=== PATIENT | male | born 1980 | race Caucasian/White ===

== ENCOUNTER 2022-07-10 10:20 | Emergency (ER) | payer OTHER ==
[2022-07-10] MEDS ORDERED: Ketorolac 30 MG/ML SDV IM ONE (10:47)
[2022-07-10] MEDS ORDERED: oxyCODONE 5 MG Tab PO ONE (11:18)
== END 2022-07-10 11:35 | disposition home or self-care (01) ==
LOC: JP.ED 10:20
DX: S92.035A Nondisplaced avulsion fracture of tuberosity of left calcaneus, initial encounter for closed fracture (principal); F17.210 Nicotine dependence, cigarettes, uncomplicated; Z86.16 Personal history of COVID-19; W11.XXXA Fall on and from ladder, initial encounter
CPT/HCPCS: 73610; 96372; 99283; A9270; J1885

== ENCOUNTER 2022-12-17 07:09 | Day surgery (SDC) | payer OTHER ==
[~2022-12-17 07:09] MED LIST: Bupivacaine 0.5% 50 ML MDV ONE
[2022-12-17] MEDS ORDERED: Nozin Nasal Sanitizer NASBOTH ONE (07:30)
[2022-12-17] MEDS ORDERED: Nozin Nasal Sanitizer NASBOTH SCH (07:30)
[2022-12-17 07:33] LABS: HEMATOCRIT 42.3 % (38.4-49.7); HEMOGLOBIN 14.4 g/dL (12.9-16.9); MEAN CORPUSCULAR HEMOGLOBIN 30.3 pg (31.6-35.5); MEAN CORPUSCULAR VOLUME 89.1 fL (81.4-99.0); RED BLOOD CELL COUNT 4.75 M/uL (4.14-5.76); WHITE BLOOD CELL COUNT,WBC 9.5 K/uL (3.2-11.0)
[2022-12-17 07:54] LABS: A/G RATIO 1.1 (1.2-2.2); ALANINE AMINOTRANSFERASE,ALT 21 U/L (12-78); ALBUMIN 3.5 g/dL (3.4-5.0); ALKALINE PHOSPHATASE 60 U/L (46-116); ANION GAP 7.7 mmol/L (5.0-14.0); ASPARTATE AMNIOTRANSFERASE,AST 14 U/L (15-37); BILIRUBIN TOTAL 0.2 mg/dL (0.2-1.0); BLOOD UREA NITROGEN,BUN 16 mg/dL (7-18); CALCIUM 8.9 mg/dL (8.5-10.1); CARBON DIOXIDE,CO2 26 mmol/L (21-32); CHLORIDE,CL 106 mmol/L (100-108); CREATININE 0.8 mg/dL (0.8-1.3); ESTIMATED GFR 113 mL/min (>60); GLUCOSE RANDOM 97 mg/dL (74-106); POTASSIUM,K 3.9 mmol/L (3.6-5.2); PROTEIN TOTAL,TP 6.8 g/dL (6.4-8.2); SODIUM,NA 140 mmol/L (140-148)
[2022-12-17] MEDS ORDERED: Lactated Ringers 1,000 ML IV SCH (08:30)
[2022-12-17] MEDS ORDERED: ceFAZolin 2 GM in Premix Bag 1 BAG IV ONE (09:00)
[2022-12-17] MEDS ORDERED: fentaNYL 250 MCG/5 ML SDV ONE ×3 (10:15→12:19)
[2022-12-17] MEDS ORDERED: Ondansetron 4 MG/2 ML SDV ONE (10:16)
[2022-12-17] MEDS ORDERED: Rocuronium 50 MG/5 ML Vial ONE ×2 (10:16→11:22)
[2022-12-17] MEDS ORDERED: Neostigmine Methylsulfate 1 MG/ML 5 ML Syringe ONE (10:16)
[2022-12-17] MEDS ORDERED: Dexamethasone 4 MG/ML SDV ONE (10:16)
[2022-12-17] MEDS ORDERED: Glycopyrrolate 0.2 MG/ML 5 ML MDV ONE (10:16)
[2022-12-17] MEDS ORDERED: Propofol 200 MG/20 ML SDV ONE (10:16)
[2022-12-17] MEDS ORDERED: Labetalol 20 MG/4 ML Syringe ONE (12:00)
[2022-12-17] MEDS ORDERED: Lactated Ringers 1,000 ML ONE (12:02)
[2022-12-17] MEDS ORDERED: oxyCODONE 5 MG Tab PO PRN (13:14)
[2022-12-17] MEDS ORDERED: ceFAZolin 2 GM in Sodium Chloride 0.9% 100 ML IV SCH (13:15)
[2022-12-17] MEDS ORDERED: Docusate Sodium 100 MG Cap PO PRN (13:15)
[2022-12-17] MEDS ORDERED: Ondansetron 4 MG/2 ML SDV IVPUSH PRN (13:15)
[2022-12-17] MEDS ORDERED: Non-Formulary Medication 1 Each (Albuterol/Ipratropium [Combivent Respimat] 4 GM Inhaler) INH PRN (13:20)
[2022-12-17] MEDS ORDERED: Morphine 2 MG/ML SYRINGE IVPUSH ONE (13:26)
[2022-12-17] MEDS: Morphine 2 MG/ML SYRINGE IVPUSH PRN ×3 (14:16→18:52)
[2022-12-17] MEDS: Sodium Chloride 0.9% 1,000 ML IV SCH ×2 (14:23→23:04)
[2022-12-17] MEDS: oxyCODONE 5 MG Tab PO PRN ×2 (14:54→20:56)
[2022-12-17] MEDS: Ketorolac 30 MG/ML SDV IVPUSH PRN (14:56)
[2022-12-17] MEDS: Acetaminophen 325 MG Tab PO SCH ×2 (16:45→21:01)
[2022-12-17] MEDS: ceFAZolin 2 GM in Premix Bag 1 BAG IV SCH ×2 (16:46→17:36)
[2022-12-17] MEDS ORDERED: Albuterol/Ipratropium 3.0-0.5 MG/3 ML Neb Soln INH PRN (17:30)
[2022-12-17] MEDS ORDERED: Calcium Carbonate 500 MG Tab.Chew PO PRN (20:12)
[2022-12-17] MEDS: Morphine 4 MG/ML Syringe IVPUSH PRN (20:57)
[2022-12-17] MEDS: Nozin Nasal Sanitizer NASBOTH SCH (20:58)
[2022-12-17] MEDS: Aspirin 325 MG Tab.EC PO SCH (20:59)
[2022-12-18] MEDS: Morphine 4 MG/ML Syringe IVPUSH PRN ×3 (00:13→07:10)
[2022-12-18] MEDS: ceFAZolin 2 GM in Premix Bag 1 BAG IV SCH ×2 (03:02→09:04)
[2022-12-18] MEDS: Acetaminophen 325 MG Tab PO SCH ×2 (03:04→09:05)
[2022-12-18] MEDS: oxyCODONE 5 MG Tab PO PRN ×2 (03:04→09:25)
[2022-12-18] MEDS ORDERED: Albuterol 6.7 GM Inhaler INH SCH (07:00)
[2022-12-18] MEDS ORDERED: Nicotine 14 MG/24 Hr Patch TRDERM SCH (09:00)
[2022-12-18] MEDS ORDERED: Non-Formulary Medication 1 Each (Albuterol Sulfate [Albuterol Sulfate Hfa] 8.5 GM Hfa.Aer. INH SCH (09:00)
[2022-12-18] MEDS: Ketorolac 30 MG/ML SDV IVPUSH PRN (09:03)
[2022-12-18] MEDS: Aspirin 325 MG Tab.EC PO SCH (09:04)
[2022-12-18] MEDS: Nozin Nasal Sanitizer NASBOTH SCH (09:04)
== END 2022-12-18 11:06 | disposition home or self-care (01) ==
LOC: JP.SDS 07:09 → JP.MS 13:15 → JP.SDS 12-18 11:06
PROVIDERS: ATTEND Specialist
DX: S83.282A Other tear of lateral meniscus, current injury, left knee, initial encounter (principal); S83.512A Sprain of anterior cruciate ligament of left knee, initial encounter; M23.52 Chronic instability of knee, left knee; F41.9 Anxiety disorder, unspecified; J45.909 Unspecified asthma, uncomplicated; Z88.8 Allergy status to other drugs, medicaments and biological substances; F17.200 Nicotine dependence, unspecified, uncomplicated
CPT/HCPCS: 29881; 29888; 36415; 73560; 80053; 85027; 97161; A9270; C1713; C1762; C1776; J0690; J1100; J1885; J2270; J2405; J2704; J2710; J3010; J3360; J3490; J7030; J7120

== ENCOUNTER 2023-06-01 19:21 | Emergency (ER) | payer OTHER ==
[2023-06-01] MEDS ORDERED: Albuterol/Ipratropium 3.0-0.5 MG/3 ML Neb Soln NEB ONE (20:01)
[2023-06-01 20:56] LABS: CORONAVIRUS COVID-19 NAA NEGATIVE (NEGATIVE); INFLUENZA A NAA NEGATIVE (NEGATIVE); INFLUENZA B NAA NEGATIVE (NEGATIVE); RESPIRATORY SYNCYTIAL VIR NAA NEGATIVE (NEGATIVE)
[2023-06-01] MEDS ORDERED: predniSONE 20 MG Tab PO STA (21:09)
[2023-06-01] MEDS ORDERED: traMADol 50 MG Tab PO STA (21:21)
== END 2023-06-01 21:46 | disposition home or self-care (01) ==
LOC: JP.ED 19:21
DX: J45.901 Unspecified asthma with (acute) exacerbation (principal); Z20.822 Contact with and (suspected) exposure to COVID-19; Z86.16 Personal history of COVID-19; Z79.899 Other long term (current) drug therapy; Z91.048 Other nonmedicinal substance allergy status; Z88.8 Allergy status to other drugs, medicaments and biological substances
CPT/HCPCS: 0241U; 71046; 94640; 99285; A9270; 99284; J7620

== ENCOUNTER 2023-12-30 10:34 | Day surgery (SDC) | payer MEDICAID, OTHER ==
[2023-12-30] MEDS: Lactated Ringers 1,000 ML IV SCH (11:12)
[2023-12-30 11:15] LABS: HEMATOCRIT 41.7 % (38.4-49.7); HEMOGLOBIN 14.8 g/dL (12.9-16.9); MEAN CORPUSCULAR HEMOGLOBIN 31.5 pg (31.6-35.5); MEAN CORPUSCULAR HGB CONC 35.5 g/dL (31.6-35.5); MEAN CORPUSCULAR VOLUME 88.7 fL (81.4-99.0); RED BLOOD CELL COUNT 4.7 M/uL (4.14-5.76); WHITE BLOOD CELL COUNT,WBC 7.2 K/uL (3.2-11.0)
[2023-12-30] MEDS: Nozin Nasal Sanitizer NASBOTH ONE (11:28)
[2023-12-30 11:30] LABS: ANION GAP 11.2 mmol/L (5.0-14.0); CALCIUM 8.7 mg/dL (8.5-10.1); EST CRCL DRUG DOSING (CG) 77.05 mL/min; POTASSIUM,K 3.8 mmol/L (3.6-5.2)
[2023-12-30] MEDS: fentaNYL 50 MCG/ML SDV IVPUSH ONE (14:22)
[2023-12-30] MEDS ORDERED: fentaNYL 250 MCG/5 ML SDV ONE ×2 (14:53→17:19)
[2023-12-30] MEDS ORDERED: Rocuronium 50 MG/5 ML Vial ONE (14:54)
[2023-12-30] MEDS ORDERED: Neostigmine Methylsulfate 10 MG/10 ML MDV ONE (14:54)
[2023-12-30] MEDS ORDERED: Dexamethasone 4 MG/ML SDV ONE (14:54)
[2023-12-30] MEDS ORDERED: Glycopyrrolate 0.2 MG/ML 5 ML MDV ONE (14:54)
[2023-12-30] MEDS ORDERED: Succinylcholine 200 MG/10 ML MDV ONE (14:54)
[2023-12-30] MEDS ORDERED: Ondansetron 4 MG/2 ML SDV ONE (14:54)
[2023-12-30] MEDS ORDERED: Propofol 200 MG/20 ML SDV ONE (15:00)
[2023-12-30] MEDS: ceFAZolin 1 GM in Premix Bag 1 BAG IV ONE (17:04)
[2023-12-30] MEDS: Bupivacaine 0.5% 50 ML MDV ONE (17:16)
[2023-12-30] MEDS ORDERED: Ketorolac 30 MG/ML SDV ONE (17:46)
[2023-12-30] MEDS: HYDROmorphone 2 MG Tab PO ONE (18:50)
== END 2023-12-30 19:53 | disposition home or self-care (01) ==
LOC: JP.SDS 10:34
PROVIDERS: ATTEND Specialist
DX: S73.102A Unspecified sprain of left hip, initial encounter (principal); M25.552 Pain in left hip; S92.002A Unspecified fracture of left calcaneus, initial encounter for closed fracture; M23.8X2 Other internal derangements of left knee; M23.52 Chronic instability of knee, left knee; J45.909 Unspecified asthma, uncomplicated; K21.9 Gastro-esophageal reflux disease without esophagitis
CPT/HCPCS: 01202; 27299; 29862; 36415; 76000; 80048; 85027; A9270; J0665; J0689; J1100; J1596; J1885; J2405; J2704; J2710; J3010; J7120; J0330; J3490